=== PATIENT | female | born 1975 | race Caucasian/White ===

== ENCOUNTER 2016-08-22 18:14 | Observation (INO) | payer OTHER ==
[~2016-08-22] VITALS: Ht 162.6 cm; Wt 90.3 kg
[~2016-08-22 18:14] MED LIST: ADVIL,NUPRIN,M200 MG PO; AMBIEN10 MG PO; AMITRIPTYLINE H10 MG PO; ANTIVERT25 MG PO; ASPIRIN EC325 MG PO; ATIVAN1 MG PO; AVENTYL,PAMELOR50 MG; Ambien PO; BACTRIM,SEPT1 TABLET PO; BENADRYL50 MG PO; BENTYL10 MG PO; CARAFATE100 MG/ML PO; CELEXA20 MG PO; CLARITIN-D 21 TABLET PO; CLONAZEPAM0.5 MG; CLONAZEPAM0.5 MG PO; COUMADIN,JANTO7.5 MG PO; Carafate PO; DIAZEPAM5 MG PO; DILAUDID2 MG PO; Dilaudid PO; ELAVIL50 MG PO; EXCEDRIN EXTRA1 EACH PO; FIORICET WI1 CAPSULE PO; FIORICET,ESG1 TABLET PO; FLAGYL500 MG PO; FLONASE16 G1 BOTH NARES; GABAPENTIN300 MG PO; IMITREX50 MG PO; INDERAL LA60 MG PO; INDERAL LA80 MG PO; INDERAL60 MG PO; INNOPRAN XL80 MG PO; KLONOPIN0.5 M1 PO; LEVOTHYROXINE50 MCG PO; MACROBID100 MG PO; NAPROXEN500 MG PO; NOHOMEMEDS; NORCO 5/3251 TABLET PO; NORTRIPTYLINE H10 MG; NORTRIPTYLINE H10 MG PO; NORTRIPTYLINE H50 MG PO; OMEPRAZOLE20 M2 PO; ONDANSETRON ODT4 MG PO; PANTOPRAZOLE SO40 MG PO; PERCOCET 5/31 TABLET PO; PHENERGAN25 MG PR; PROMETHAZINE HC25 M1; PROMETHAZINE HC25 M1 PO; PROPRANOLOL HCL60 MG PO; PROTONIX40 MG PO; Phenergan PO; Protonix PO; RESTORIL30 MG PO; ROBAXIN500 MG PO; SYNTHROID100 MCG PO; TEMAZEPAM30 MG PO; TOPAMAX25 MG PO; TOPAMAX50 MG PO; TRAMADOL HCL50 MG PO; TRANSDERM-SCO1 PATCH TD; TRAZODONE HCL100 MG PO; TRIAZOLAM0.25 MG PO; Ultram PO; VALIUM5 MG PO; VICODIN,LORT1 TABLET PO; XARELTO20 MG PO; ZANTAC150 MG PO; ZOFRAN ODT4 MG PO; ZOFRAN ODT8 MG PO; ZOFRAN4 MG PO; ZOMIG2.5 M1 NS
[2016-08-22 19:14] LABS: EOSINOPHIL (%) 2.8 % (0-5); EOSINOPHIL COUNT 0.3 K/uL (0-0.3); HEMATOCRIT 42.1 % (36.0-46.0); IMMATURE GRANULOCYTE (%) 0.2 % (0.0-0.7); IMMATURE GRANULOCYTE COUNT 0.2 K/uL; LYMPHOCYTE COUNT 2.5 K/uL (1.0-2.8); MCH 29.3 PG (29.0-34.0); MCV 86.3 FL (83-99); MEAN PLAT.VOLUME 9.9 uM^3 (9.5-12.4); MONOCYTE (%) 7.8 % (3-12); MONOCYTE COUNT 0.8 K/uL (0-0.8); NEUTROPHIL (%) 63.7 % (45-76); NEUTROPHIL COUNT 6.4 K/uL (1.8-6.4); PLATELET COUNT 269 K/uL (156-360); RBC DIS.WIDTH-SD 40.2 % (39-53); RED BLOOD COUNT 4.88 M/uL (3.80-5.20)
[2016-08-22 19:22] LABS: CHLORIDE 108 mEq/L (99-109); POTASSIUM 3.7 mEq/L (3.7-5.4); SODIUM 142 mEq/L (136-147)
[2016-08-22 19:25] LABS: GLUCOSE 89 mg/dL (70-99)
[2016-08-22 19:26] LABS: D-DIMER ELISA 0.29 mg/L FEU (< 0.57)
[2016-08-22 19:26] LABS: ANION GAP 11 MEQ/L (2-14); TOTAL BILIRUBIN 0.3 mg/dL (0.0-1.0)
[2016-08-22 19:28] LABS: ALKALINE PHOSPHATASE 101 IU/L (3-129); GFR ESTIMATE (CALCULATED) > 59 mL/min/
[2016-08-22 19:29] LABS: UREA NITROGEN (BUN) 17 mg/dL (9-23)
[2016-08-22 19:34] LABS: TROP-I INTERPRETATION NEGATIVE; TROPONIN-I < 0.01 ng/mL (0.0-0.30)
[2016-08-22] MEDS ORDERED: ZOFRAN ODT4 MG PO (20:23)
[2016-08-23] VITALS: BP 108/63
[2016-08-23 00:50] VITALS: BP 130/76
[2016-08-23 07:37] VITALS: BP 81/50
[2016-08-23 08:24] LABS: TROP-I INTERPRETATION NEGATIVE; TROPONIN-I < 0.01 ng/mL (0.0-0.30)
[2016-08-23 11:49] LABS: TROP-I INTERPRETATION NEGATIVE; TROPONIN-I < 0.01 ng/mL (0.0-0.30)
[2016-08-23 12:23] VITALS: BP 95/63
== END 2016-08-23 13:18 | disposition home or self-care (01) ==
LOC: EME 18:14 → 5WEST 20:13 → EDOF 20:13 → UNDODEPER 21:46 → 5WEST 21:46
PROVIDERS: Emergency Medicine; Hospitalist; Physician Assistant Medical
DX: R07.89 Other chest pain (principal); G43.909 Migraine, unspecified, not intractable, without status migrainosus; E66.9 Obesity, unspecified; Z86.718 Personal history of other venous thrombosis and embolism; Z86.711 Personal history of pulmonary embolism
CPT/HCPCS: 71020; 71275; 80053; 83880; 84484; 85025; 85379; 93005; 99281; 99284; G0378; J1885; J7030

== ENCOUNTER 2016-11-16 16:13 | Observation (INO) | payer OTHER ==
[~2016-11-16] VITALS: Ht 154.9 cm; Wt 90.0 kg
[2016-11-16 17:10] LABS: HEMATOCRIT 43.3 % (36.0-46.0); MCH 27.2 PG (29.0-34.0); MCHC 31.4 G/DL (30.0-36.0); MCV 86.6 FL (83-99); MEAN PLAT.VOLUME 10.7 uM^3 (9.5-12.4); PLATELET COUNT 189 K/uL (156-360)
[2016-11-16] MEDS ORDERED: ELIQUIS2.5 MG PO (17:27)
[2016-11-16] MEDS ORDERED: PROTONIX40 MG PO (17:28)
[2016-11-16 17:37] LABS: CHLORIDE 109 mEq/L (99-109); POTASSIUM 3.5 mEq/L (3.7-5.4); SODIUM 143 mEq/L (136-147)
[2016-11-16 17:39] LABS: GLUCOSE 92 mg/dL (70-99)
[2016-11-16 17:40] LABS: ANION GAP 11 MEQ/L (2-14)
[2016-11-16 17:41] LABS: TOTAL BILIRUBIN 0.4 mg/dL (0.0-1.0)
[2016-11-16 17:42] LABS: ALKALINE PHOSPHATASE 103 IU/L (3-129)
[2016-11-16 17:43] LABS: GFR ESTIMATE (CALCULATED) > 59 mL/min/
[2016-11-16 17:44] LABS: UREA NITROGEN (BUN) 14 mg/dL (9-23)
[2016-11-16 17:46] LABS: LIPASE 19 U/L (1.0-51.0)
[2016-11-16 17:47] LABS: ADD MIUA? YES; BILIRUBIN NEGATIVE; BLOOD NEGATIVE; COLOR YELLOW ((YELLOW)); GLUCOSE (STRIP) NEGATIVE; KETONES NEGATIVE; LEUKOCYTES NEGATIVE; NITRITE NEGATIVE; PROTEIN (STRIP) NEGATIVE; SPECIFIC GRAVITY 1.016 (1.000-1.030); UROBILINOGEN 0.2 MG/DL (0.2-1.0)
[2016-11-16 17:51] LABS: QUANTITATIVE HCG < 4.0 MIU/ML
[2016-11-16 17:52] LABS: BACTERIA RARE /HPF; EPITHELIAL CELLS 1+ /HPF; MUCUS TRACE /LPF; RED BLOOD CELLS NONE SEEN /HPF (0-5); UCUL ADDED? NO; WHITE BLOOD CELLS 0-5 /HPF (0-5)
[2016-11-17] MEDS ORDERED: SYNTHROID150 MCG PO (01:20)
[2016-11-17] MEDS ORDERED: ZOMIG5 M1 NS (01:21)
[2016-11-17 03:58] VITALS: BP 100/63
[2016-11-17 05:56] LABS: HEMATOCRIT 35.5 % (36.0-46.0); MCH 28.2 PG (29.0-34.0); MCHC 32.4 G/DL (30.0-36.0); MEAN PLAT.VOLUME 10.2 uM^3 (9.5-12.4); PLATELET COUNT 216 K/uL (156-360); RBC DIS.WIDTH-CV 12.9 % (11.8-14.6); RBC DIS.WIDTH-SD 40.9 % (39-53); RED BLOOD COUNT 4.08 M/uL (3.80-5.20); WHITE BLOOD COUNT 6.5 K/uL (4.1-10.2)
[2016-11-17 06:21] LABS: ALKALINE PHOSPHATASE 80 IU/L (3-129); ANION GAP 8 MEQ/L (2-14); CHLORIDE 112 MEQ/L (99-109); GFR ESTIMATE (CALCULATED) > 59 mL/min/; GLUCOSE 89 mg/dL (70-99); POTASSIUM 3.6 MEQ/L (3.7-5.4); SAMPLE HEMOLYSIS CHECK 0; SAMPLE ICTERIC CHECK 0; SAMPLE LIPEMIA CHECK 0; SODIUM 142 MEQ/L (136-147); TOTAL BILIRUBIN 0.5 MG/DL (0.0-1.0); UREA NITROGEN (BUN) 10 mg/dL (9-23)
[2016-11-17 07:32] VITALS: BP 113/55
[2016-11-17 12:04] VITALS: BP 97/58
[2016-11-17 15:45] VITALS: BP 112/82
[2016-11-17 19:16] VITALS: BP 117/73
[2016-11-18 04:06] VITALS: BP 124/74
[2016-11-18 06:16] LABS: EOSINOPHIL COUNT 0.2 K/uL (0-0.3); HEMATOCRIT 36.5 % (36.0-46.0); INSTRUMENT ABS NEUTROPHIL CT 1.6 K/uL; LYMPHOCYTE COUNT 2.2 K/uL (1.0-2.8); MCH 28.7 PG (29.0-34.0); MCHC 32.6 G/DL (30.0-36.0); MEAN PLAT.VOLUME 10.5 uM^3 (9.5-12.4); MONOCYTE COUNT 0.4 K/uL (0-0.8); NEUTROPHIL (%) 36.2 % (45-76); NEUTROPHIL COUNT 1.6 K/uL (1.8-6.4); PLATELET COUNT 199 K/uL (156-360); RBC DIS.WIDTH-CV 12.9 % (11.8-14.6); RBC DIS.WIDTH-SD 41.6 % (39-53); RED BLOOD COUNT 4.15 M/uL (3.80-5.20)
[2016-11-18 06:17] LABS: WHITE BLOOD COUNT 4.4 K/uL (4.1-10.2)
[2016-11-18 06:44] LABS: ANION GAP 10 MEQ/L (2-14); CHLORIDE 109 MEQ/L (99-109); GFR ESTIMATE (CALCULATED) > 59 mL/min/; GLUCOSE 82 mg/dL (70-99); POTASSIUM 3.6 MEQ/L (3.7-5.4); SAMPLE HEMOLYSIS CHECK 0; SAMPLE ICTERIC CHECK 0; SAMPLE LIPEMIA CHECK 0; SODIUM 143 MEQ/L (136-147); UREA NITROGEN (BUN) 9 mg/dL (9-23)
[2016-11-18 07:20] VITALS: BP 97/63
[2016-11-18 09:53] LABS: MAGNESIUM 2.1 mg/dl (1.3-2.7)
[2016-11-18 12:15] VITALS: BP 121/90
[2016-11-18 12:48] VITALS: BP 121/90
[2016-11-18] MEDS ORDERED: ENDOCET 5-3251 EACH PO (14:31)
== END 2016-11-18 15:10 | disposition home or self-care (01) ==
LOC: EME 16:13 → EDOF 11-17 02:05 → 5WEST 11-17 03:52
PROVIDERS: Hospitalist; Internal Medicine
DX: R11.2 Nausea with vomiting, unspecified (principal); K92.0 Hematemesis; D68.2 Hereditary deficiency of other clotting factors; G89.29 Other chronic pain; R10.9 Unspecified abdominal pain; E03.9 Hypothyroidism, unspecified; G43.909 Migraine, unspecified, not intractable, without status migrainosus; E66.01 Morbid (severe) obesity due to excess calories; Z68.37 Body mass index [BMI] 37.0-37.9, adult; Z79.01 Long term (current) use of anticoagulants; Z86.711 Personal history of pulmonary embolism; Z86.718 Personal history of other venous thrombosis and embolism
CPT/HCPCS: 74020; 78264; 80048; 80053; 81003; 83690; 83735; 84702; 85025; 85027; 85730; 99281; 99285; A9541; C9113; G0378; J1170; J2405; J3010; J7030; Q0169

== ENCOUNTER 2017-01-20 15:39 | Emergency (ER) | payer OTHER ==
[~2017-01-20] VITALS: Ht 154.9 cm; Wt 86.1 kg
[~2017-01-20 15:39] MED LIST changes: +ELIQUIS2.5 MG PO; +ENDOCET 5-3251 EACH PO; +SYNTHROID150 MCG PO; +ZOMIG5 M1 NS
[2017-01-20 16:59] LABS: EOSINOPHIL (%) 2.7 % (0-5); EOSINOPHIL COUNT 0.2 K/uL (0-0.3); HEMATOCRIT 41.7 % (36.0-46.0); IMMATURE GRANULOCYTE (%) 0.2 % (0.0-0.7); INSTRUMENT ABS NEUTROPHIL CT 5.8 K/uL; MCH 27.2 PG (29.0-34.0); MCHC 32.9 G/DL (30.0-36.0); MCV 82.7 FL (83-99); MEAN PLAT.VOLUME 9.9 uM^3 (9.5-12.4); MONOCYTE (%) 7.7 % (3-12); MONOCYTE COUNT 0.7 K/uL (0-0.8); NEUTROPHIL (%) 66.4 % (45-76); NEUTROPHIL COUNT 5.8 K/uL (1.8-6.4); PLATELET COUNT 272 K/uL (156-360); RBC DIS.WIDTH-CV 13.2 % (11.8-14.6); RBC DIS.WIDTH-SD 39.7 % (39-53); RED BLOOD COUNT 5.04 M/uL (3.80-5.20); WHITE BLOOD COUNT 8.8 K/uL (4.1-10.2)
[2017-01-20 17:13] LABS: CHLORIDE 107 mEq/L (99-109); POTASSIUM 3.7 mEq/L (3.7-5.4); SODIUM 140 mEq/L (136-147)
[2017-01-20 17:15] LABS: GLUCOSE 91 mg/dL (70-99)
[2017-01-20 17:17] LABS: ANION GAP 12 MEQ/L (2-14); TOTAL BILIRUBIN 0.3 mg/dL (0.0-1.0)
[2017-01-20 17:19] LABS: ALKALINE PHOSPHATASE 118 IU/L (3-129); GFR ESTIMATE (CALCULATED) > 59 mL/min/
[2017-01-20 17:20] LABS: UREA NITROGEN (BUN) 12 mg/dL (9-23)
[2017-01-20 17:22] LABS: LIPASE 21 U/L (1.0-51.0)
[2017-01-20 17:28] LABS: QUANTITATIVE HCG < 4.0 MIU/ML
[2017-01-20] MEDS ORDERED: BENTYL20 MG PO (18:36)
[2017-01-20] MEDS ORDERED: MACROBID100 MG PO (18:39)
[2017-01-20 18:50] VITALS: BP 111/87
== END 2017-01-20 19:00 | disposition home or self-care (01) ==
LOC: EME 15:39 → EXP 15:39
PROVIDERS: Physician Assistant
DX: K92.1 Melena (principal); K21.9 Gastro-esophageal reflux disease without esophagitis; E03.9 Hypothyroidism, unspecified; Z90.49 Acquired absence of other specified parts of digestive tract; Z90.710 Acquired absence of both cervix and uterus; Z87.442 Personal history of urinary calculi; Z86.718 Personal history of other venous thrombosis and embolism; Z86.711 Personal history of pulmonary embolism; Z79.01 Long term (current) use of anticoagulants; Z86.61 Personal history of infections of the central nervous system; Z88.0 Allergy status to penicillin
CPT/HCPCS: 74176; 80053; 83690; 84702; 85025; 86900; 86901; 99281; 99284; J2405; J3010; J7030

== ENCOUNTER 2017-01-25 14:52 | Observation (INO) | payer OTHER ==
[~2017-01-25] VITALS: Ht 154.9 cm; Wt 86.5 kg
[~2017-01-25 14:52] MED LIST changes: +BENTYL20 MG PO
[2017-01-25 15:47] LABS: HEMATOCRIT 43.9 % (36.0-46.0); MCH 27.2 PG (29.0-34.0); MCV 82.2 FL (83-99); MEAN PLAT.VOLUME 10.3 uM^3 (9.5-12.4); PLATELET COUNT 274 K/uL (156-360); RBC DIS.WIDTH-CV 13.2 % (11.8-14.6); RBC DIS.WIDTH-SD 39.2 % (39-53); RED BLOOD COUNT 5.34 M/uL (3.80-5.20); WHITE BLOOD COUNT 7.8 K/uL (4.1-10.2)
[2017-01-25 16:01] LABS: CHLORIDE 108 mEq/L (99-109); POTASSIUM 4.3 mEq/L (3.7-5.4); SODIUM 138 mEq/L (136-147)
[2017-01-25 16:03] LABS: GLUCOSE 108 mg/dL (70-99)
[2017-01-25 16:04] LABS: ANION GAP 9 MEQ/L (2-14)
[2017-01-25 16:07] LABS: GFR ESTIMATE (CALCULATED) > 59 mL/min/
[2017-01-25 16:08] LABS: UREA NITROGEN (BUN) 17 mg/dL (9-23)
[2017-01-25 16:16] LABS: QUANTITATIVE HCG < 4.0 MIU/ML
[2017-01-25 23:59] VITALS: BP 110/69
[2017-01-26 04:00] VITALS: BP 132/82
[2017-01-26 07:08] LABS: ANION GAP 12 MEQ/L (2-14); CHLORIDE 108 MEQ/L (99-109); GFR ESTIMATE (CALCULATED) > 59 mL/min/; GLUCOSE 94 mg/dL (70-99); POTASSIUM 3.9 MEQ/L (3.7-5.4); SAMPLE HEMOLYSIS CHECK 0; SAMPLE ICTERIC CHECK 0; SAMPLE LIPEMIA CHECK 0; SODIUM 139 MEQ/L (136-147); UREA NITROGEN (BUN) 18 mg/dL (9-23)
[2017-01-26 07:29] LABS: POC NON-PRINT COM 1 ND
[2017-01-26 08:12] LABS: HEMATOCRIT 39.3 % (36.0-46.0); MCH 27.9 PG (29.0-34.0); MCHC 33.3 G/DL (30.0-36.0); MCV 83.6 FL (83-99); MEAN PLAT.VOLUME 10.2 uM^3 (9.5-12.4); PLATELET COUNT 239 K/uL (156-360); RBC DIS.WIDTH-CV 13.4 % (11.8-14.6); WHITE BLOOD COUNT 7.4 K/uL (4.1-10.2)
[2017-01-26 08:52] VITALS: BP 151/64
[2017-01-26 13:00] VITALS: BP 114/62
[2017-01-26] MEDS ORDERED: BENTYL20 MG PO (13:00)
[2017-01-26 14:08] LABS: HEMATOCRIT 42.2 % (36.0-46.0); MCH 26.9 PG (29.0-34.0); MCV 84.2 FL (83-99); MEAN PLAT.VOLUME 10.1 uM^3 (9.5-12.4); PLATELET COUNT 222 K/uL (156-360); RBC DIS.WIDTH-CV 13.4 % (11.8-14.6); RBC DIS.WIDTH-SD 41.2 % (39-53); RED BLOOD COUNT 5.01 M/uL (3.80-5.20); WHITE BLOOD COUNT 6.3 K/uL (4.1-10.2)
== END 2017-01-26 15:25 | disposition home or self-care (01) ==
LOC: EME 14:52 → 5WEST 20:45 → EDOF 20:45 → ENRESERV 20:46 → 5WEST 23:43
PROVIDERS: Hospitalist; Physician Assistant; Specialist
DX: K92.2 Gastrointestinal hemorrhage, unspecified (principal); R10.84 Generalized abdominal pain; G89.29 Other chronic pain; D68.9 Coagulation defect, unspecified; E03.9 Hypothyroidism, unspecified; Z88.8 Allergy status to other drugs, medicaments and biological substances; D68.51 Activated protein C resistance; Z86.718 Personal history of other venous thrombosis and embolism; Z79.01 Long term (current) use of anticoagulants; Z68.36 Body mass index [BMI] 36.0-36.9, adult; E66.9 Obesity, unspecified; Z82.49 Family history of ischemic heart disease and other diseases of the circulatory system; Z95.828 Presence of other vascular implants and grafts; Z80.3 Family history of malignant neoplasm of breast
CPT/HCPCS: 78278; 80048; 82272; 83605; 84702; 85027; 86900; 86901; 99281; 99285; A9512; A9560; G0378; J1170; J2060; J2405; J3010; J7030; S0028

== ENCOUNTER 2017-02-24 03:05 | Emergency (ER) | payer SELFPAY ==
[~2017-02-24] VITALS: Ht 152.4 cm; Wt 85.0 kg
[2017-02-24 03:41] LABS: HEMATOCRIT 43.5 % (36.0-46.0); MCH 27.4 PG (29.0-34.0); MCHC 32.2 G/DL (30.0-36.0); MCV 85.1 FL (83-99); MEAN PLAT.VOLUME 10.6 uM^3 (9.5-12.4); PLATELET COUNT 213 K/uL (156-360); RBC DIS.WIDTH-CV 14.9 % (11.8-14.6); RBC DIS.WIDTH-SD 46.1 % (39-53); RED BLOOD COUNT 5.11 M/uL (3.80-5.20); WHITE BLOOD COUNT 7.9 K/uL (4.1-10.2)
[2017-02-24 03:53] LABS: CHLORIDE 109 mEq/L (99-109); POTASSIUM 3.9 mEq/L (3.7-5.4); SODIUM 141 mEq/L (136-147)
[2017-02-24 03:55] LABS: GLUCOSE 86 mg/dL (70-99)
[2017-02-24 03:57] LABS: ANION GAP 13 MEQ/L (2-14); TOTAL BILIRUBIN 0.6 mg/dL (0.0-1.0)
[2017-02-24 03:59] LABS: ALKALINE PHOSPHATASE 132 IU/L (3-129); GFR ESTIMATE (CALCULATED) > 59 mL/min/
[2017-02-24 04:00] LABS: UREA NITROGEN (BUN) 13 mg/dL (9-23)
[2017-02-24 04:08] LABS: QUANTITATIVE HCG < 4.0 MIU/ML
[2017-02-24 05:03] VITALS: BP 123/72
== END 2017-02-24 05:04 | disposition home or self-care (01) ==
LOC: EME 03:05
DX: K92.2 Gastrointestinal hemorrhage, unspecified (principal); R10.9 Unspecified abdominal pain; Z79.01 Long term (current) use of anticoagulants; K21.9 Gastro-esophageal reflux disease without esophagitis; E03.9 Hypothyroidism, unspecified; Z87.442 Personal history of urinary calculi; Z86.73 Personal history of transient ischemic attack (TIA), and cerebral infarction without residual deficits; Z86.718 Personal history of other venous thrombosis and embolism; Z88.6 Allergy status to analgesic agent; Z88.5 Allergy status to narcotic agent; Z88.1 Allergy status to other antibiotic agents
CPT/HCPCS: 80053; 81003; 84702; 85027; 99281; 99285; J2405; J3010

== ENCOUNTER 2017-02-24 23:03 | Emergency (ER) | payer SELFPAY ==
[~2017-02-24] VITALS: Ht 154.9 cm; Wt 85.1 kg
[2017-02-25 00:05] LABS: HEMATOCRIT 43.9 % (36.0-46.0); MCH 27.2 PG (29.0-34.0); MCHC 31.9 G/DL (30.0-36.0); MCV 85.4 FL (83-99); MEAN PLAT.VOLUME 10.6 uM^3 (9.5-12.4); PLATELET COUNT 239 K/uL (156-360); RBC DIS.WIDTH-CV 14.8 % (11.8-14.6); RBC DIS.WIDTH-SD 46.5 % (39-53); RED BLOOD COUNT 5.14 M/uL (3.80-5.20)
[2017-02-25 00:17] LABS: CHLORIDE 106 mEq/L (99-109); POTASSIUM 3.9 mEq/L (3.7-5.4); SODIUM 142 mEq/L (136-147)
[2017-02-25 00:19] LABS: GLUCOSE 86 mg/dL (70-99)
[2017-02-25 00:21] LABS: ANION GAP 14 MEQ/L (2-14); TOTAL BILIRUBIN 0.7 mg/dL (0.0-1.0)
[2017-02-25 00:23] LABS: ALKALINE PHOSPHATASE 139 IU/L (3-129); GFR ESTIMATE (CALCULATED) > 59 mL/min/
[2017-02-25 00:24] LABS: UREA NITROGEN (BUN) 13 mg/dL (9-23)
[2017-02-25 00:25] LABS: DIRECT BILIRUBIN 0.3 mg/dL (0.0-0.3)
[2017-02-25 00:26] LABS: LIPASE 15 U/L (1.0-51.0)
[2017-02-25 04:05] VITALS: BP 102/71
== END 2017-02-25 04:11 | disposition home or self-care (01) ==
LOC: EME 23:03
PROVIDERS: Emergency Medicine
DX: K92.2 Gastrointestinal hemorrhage, unspecified (principal); R10.84 Generalized abdominal pain; Z87.442 Personal history of urinary calculi; Z86.73 Personal history of transient ischemic attack (TIA), and cerebral infarction without residual deficits; E03.9 Hypothyroidism, unspecified; K21.9 Gastro-esophageal reflux disease without esophagitis
CPT/HCPCS: 74177; 80048; 80076; 83690; 85027; 86850; 86900; 86901; 99281; 99285; J2405; J3010; J7030

== ENCOUNTER 2017-02-25 22:53 | Observation (INO) | payer SELFPAY ==
[~2017-02-25] VITALS: Ht 154.9 cm; Wt 88.9 kg
[2017-02-26 00:48] LABS: HEMATOCRIT 40.4 % (36.0-46.0); MCH 27.6 PG (29.0-34.0); MCHC 31.9 G/DL (30.0-36.0); MCV 86.5 FL (83-99); MEAN PLAT.VOLUME 10.6 uM^3 (9.5-12.4); PLATELET COUNT 194 K/uL (156-360); RBC DIS.WIDTH-CV 14.6 % (11.8-14.6); RBC DIS.WIDTH-SD 46.6 % (39-53); RED BLOOD COUNT 4.67 M/uL (3.80-5.20); WHITE BLOOD COUNT 7.9 K/uL (4.1-10.2)
[2017-02-26 01:01] LABS: CHLORIDE 114 mEq/L (99-109); POTASSIUM 3.5 mEq/L (3.7-5.4); SODIUM 144 mEq/L (136-147)
[2017-02-26 01:03] LABS: GLUCOSE 93 mg/dL (70-99)
[2017-02-26 01:05] LABS: ANION GAP 9 MEQ/L (2-14)
[2017-02-26 01:07] LABS: ALKALINE PHOSPHATASE 107 IU/L (3-129); GFR ESTIMATE (CALCULATED) > 59 mL/min/
[2017-02-26 01:08] LABS: UREA NITROGEN (BUN) 13 mg/dL (9-23)
[2017-02-26 01:17] LABS: QUANTITATIVE HCG < 4.0 MIU/ML; TOTAL BILIRUBIN 0.3 mg/dL (0.0-1.0)
[2017-02-26 04:07] LABS: ADD MIUA? NO; BILIRUBIN NEGATIVE; BLOOD NEGATIVE; COLOR STRAW ((YELLOW)); GLUCOSE (STRIP) NEGATIVE; KETONES NEGATIVE; LEUKOCYTES NEGATIVE; NITRITE NEGATIVE; PROTEIN (STRIP) NEGATIVE; SPECIFIC GRAVITY 1.014 (1.000-1.030); UCUL ADDED? NO; UROBILINOGEN 0.2 MG/DL (0.2-1.0)
[2017-02-26 08:00] VITALS: BP 114/76
[2017-02-26 12:38] VITALS: BP 110/56
[2017-02-26 16:00] VITALS: BP 100/65
[2017-02-26 16:35] LABS: LIPASE 27 U/L (1.0-51.0)
[2017-02-26 19:20] VITALS: BP 121/72
[2017-02-27] VITALS (7 sets, daily range): BP systolic 83–105; BP diastolic 50–68
[2017-02-27 06:03] LABS: ANION GAP 8 MEQ/L (2-14); CHLORIDE 111 MEQ/L (99-109); POTASSIUM 3.9 MEQ/L (3.7-5.4); SAMPLE HEMOLYSIS CHECK 1; SAMPLE ICTERIC CHECK 0; SAMPLE LIPEMIA CHECK 0; SODIUM 140 MEQ/L (136-147)
[2017-02-27 06:09] LABS: GFR ESTIMATE (CALCULATED) > 59 mL/min/; GLUCOSE 107 mg/dL (70-99); UREA NITROGEN (BUN) 9 mg/dL (9-23)
[2017-02-27 11:25] LABS: INTERNAL CONTROL VALID? YES
[2017-02-27 12:10] LABS: C DIFF TOXIN NEGATIVE (NEGATIVE)
[2017-02-27 12:14] LABS: PROBE CHECK PASS; SPECIMEN PROCESSING CONTROL PASS
[2017-02-28] VITALS: BP 108/69
[2017-02-28 03:35] VITALS: BP 117/63
[2017-02-28 08:22] VITALS: BP 102/59
[2017-02-28 10:21] VITALS: BP 88/50
== END 2017-02-28 21:03 | disposition home or self-care (01) ==
LOC: EME 22:53 → EDOF 02-26 05:25 → 5WEST 02-26 05:25 → EDOF 02-26 05:25 → ENRESERV 02-26 05:31 → 5WEST 02-26 07:54
PROVIDERS: Emergency Medicine; Internal Medicine; Nurse Practitioner Family
PROC: 0DB68ZX Excision of Stomach, Via Natural or Artificial Opening Endoscopic, Diagnostic (ICD-10-PCS; principal; 2017-02-26)
PROC: 0DJD8ZZ Inspection of Lower Intestinal Tract, Via Natural or Artificial Opening Endoscopic (ICD-10-PCS; principal; 2017-02-26)
DX: R10.13 Epigastric pain (principal); R10.12 Left upper quadrant pain; R11.2 Nausea with vomiting, unspecified; K29.70 Gastritis, unspecified, without bleeding; K92.2 Gastrointestinal hemorrhage, unspecified; K64.8 Other hemorrhoids; Z90.49 Acquired absence of other specified parts of digestive tract; D68.51 Activated protein C resistance; Z86.718 Personal history of other venous thrombosis and embolism; Z86.711 Personal history of pulmonary embolism; Z79.01 Long term (current) use of anticoagulants; Z98.890 Other specified postprocedural states; E03.9 Hypothyroidism, unspecified; G89.4 Chronic pain syndrome; Z87.442 Personal history of urinary calculi; Z90.710 Acquired absence of both cervix and uterus; Z88.0 Allergy status to penicillin; Z88.5 Allergy status to narcotic agent; Z88.1 Allergy status to other antibiotic agents; Z80.3 Family history of malignant neoplasm of breast; Z80.1 Family history of malignant neoplasm of trachea, bronchus and lung; Z82.49 Family history of ischemic heart disease and other diseases of the circulatory system
CPT/HCPCS: 74177; 80048; 80053; 81003; 82272; 83690; 84702; 85027; 87493; 88305; 88342 TC; 99281; 99284; G0378; J1170; J2405; J3010; J7030

== ENCOUNTER 2017-10-16 20:26 | Emergency (ER) | payer SELFPAY ==
[~2017-10-16] VITALS: Ht 154.9 cm; Wt 87.7 kg
[2017-10-16 22:20] LABS: HEMATOCRIT 44.7 % (36.0-46.0); HEMOGLOBIN 14.9 G/DL (11.9-15.5); MCH 29.2 PG (29.0-34.0); MCHC 33.3 G/DL (30.0-36.0); MCV 87.5 FL (83-99); PLATELET COUNT 233 K/uL (156-360); RBC DIS.WIDTH-CV 13.8 % (11.8-14.6); RBC DIS.WIDTH-SD 44.7 % (39-53); RED BLOOD COUNT 5.11 M/uL (3.80-5.20); WHITE BLOOD COUNT 10.6 K/uL (4.1-10.2)
[2017-10-16 22:23] LABS: APPEARANCE CLEAR ((CLEAR)); BILIRUBIN NEGATIVE; BLOOD SMALL; COLOR STRAW ((YELLOW)); GLUCOSE (STRIP) NEGATIVE; KETONES NEGATIVE; LEUKOCYTES NEGATIVE; NITRITE NEGATIVE; PROTEIN (STRIP) NEGATIVE; UROBILINOGEN 0.2 MG/DL (0.2-1.0)
[2017-10-16 22:28] LABS: BACTERIA RARE /HPF; EPITHELIAL CELLS RARE /HPF; MUCUS TRACE /LPF; RED BLOOD CELLS 0-5 /HPF (0-5); UCUL ADDED? NO; WHITE BLOOD CELLS 0-5 /HPF (0-5)
[2017-10-16 22:39] LABS: ALBUMIN 4.5 G/DL (3.2-4.8); CHLORIDE 106 MEQ/L (99-109); POTASSIUM 3.6 MEQ/L (3.7-5.4); SODIUM 138 MEQ/L (136-147); TOTAL BILIRUBIN 0.3 MG/DL (0.0-1.0)
[2017-10-16 22:45] LABS: ALKALINE PHOSPHATASE 101 IU/L (3-129); ALT (GPT) 21 IU/L (3-49); AST (GOT) 19 IU/L (2-34); CREATININE 0.9 MG/DL (0.6-1.3); GFR ESTIMATE (CALCULATED) > 59 mL/min/; GLUCOSE 121 mg/dL (70-99); TOTAL PROTEIN 7.4 G/DL (6.4-8.3); UREA NITROGEN (BUN) 13 mg/dL (9-23)
[2017-10-16 22:48] LABS: QUANTITATIVE HCG < 4.0 MIU/ML
[2017-10-16 22:49] LABS: AMYLASE 77 IU/L (1-118)
[2017-10-16 22:54] LABS: LIPASE 17 U/L (1.0-51.0)
[2017-10-17 01:21] LABS: D-DIMER ELISA < 150.00 ng/mLDDU (<230)
[2017-10-17] MEDS ORDERED: PERCOCET 5/31 TABLET PO (01:31)
[2017-10-17 01:55] VITALS: BP 106/66
== END 2017-10-17 01:55 | disposition home or self-care (01) ==
LOC: EME 20:26
PROVIDERS: Physician Assistant
DX: K92.1 Melena (principal); R10.12 Left upper quadrant pain; Z86.73 Personal history of transient ischemic attack (TIA), and cerebral infarction without residual deficits; E03.9 Hypothyroidism, unspecified; K21.9 Gastro-esophageal reflux disease without esophagitis; Z87.442 Personal history of urinary calculi; Z86.711 Personal history of pulmonary embolism; Z86.718 Personal history of other venous thrombosis and embolism; Z88.0 Allergy status to penicillin; Z88.5 Allergy status to narcotic agent; Z90.49 Acquired absence of other specified parts of digestive tract; Z90.710 Acquired absence of both cervix and uterus
CPT/HCPCS: 74176; 80053; 81003; 82150; 83690; 84702; 85027; 85379; 99281; 99285; J3010

== ENCOUNTER 2018-01-16 09:22 | Emergency (ER) | payer SELFPAY ==
[~2018-01-16] VITALS: Ht 154.9 cm; Wt 86.8 kg
[2018-01-16 10:26] LABS: HEMATOCRIT 40.3 % (36.0-46.0); HEMOGLOBIN 13.7 G/DL (11.9-15.5); MCH 29.7 PG (29.0-34.0); MCV 87.2 FL (83-99); PLATELET COUNT 236 K/uL (156-360); RBC DIS.WIDTH-CV 14.1 % (11.8-14.6); RBC DIS.WIDTH-SD 44.7 % (39-53); RED BLOOD COUNT 4.62 M/uL (3.80-5.20); WHITE BLOOD COUNT 7.4 K/uL (4.1-10.2)
[2018-01-16 10:34] LABS: ALBUMIN 4.4 g/dL (3.2-4.8); CHLORIDE 108 mEq/L (99-109); SODIUM 140 mEq/L (136-147)
[2018-01-16 10:37] LABS: GLUCOSE 113 mg/dL (70-99); TOTAL PROTEIN 7.5 g/dL (6.4-8.3)
[2018-01-16 10:39] LABS: TOTAL BILIRUBIN 0.4 mg/dL (0.0-1.0)
[2018-01-16 10:40] LABS: ALKALINE PHOSPHATASE 92 IU/L (3-129); CREATININE 0.9 mg/dL (0.6-1.3); GFR ESTIMATE (CALCULATED) > 59 mL/min/
[2018-01-16 10:41] LABS: UREA NITROGEN (BUN) 20 mg/dL (9-23)
[2018-01-16 10:42] LABS: AST (GOT) 21 IU/L (2-34)
[2018-01-16 10:43] LABS: ALT (GPT) 25 IU/L (3-49)
[2018-01-16 11:35] LABS: APPEARANCE CLEAR ((CLEAR)); BILIRUBIN NEGATIVE; BLOOD NEGATIVE; COLOR STRAW ((YELLOW)); GLUCOSE (STRIP) NEGATIVE; KETONES NEGATIVE; LEUKOCYTES NEGATIVE; NITRITE NEGATIVE; PROTEIN (STRIP) NEGATIVE; SPECIFIC GRAVITY 1.012 (1.000-1.030); UCUL ADDED? NO; UROBILINOGEN 0.2 MG/DL (0.2-1.0)
[2018-01-16] MEDS ORDERED: PROTONIX40 MG PO (14:35)
[2018-01-16] MEDS ORDERED: PERCOCET 5/31 TABLET PO (14:35)
[2018-01-16 14:54] VITALS: BP 122/90
== END 2018-01-16 15:00 | disposition home or self-care (01) ==
LOC: EME 09:22
PROVIDERS: Emergency Medicine
DX: K62.5 Hemorrhage of anus and rectum (principal); R10.9 Unspecified abdominal pain; Z86.718 Personal history of other venous thrombosis and embolism; Z79.01 Long term (current) use of anticoagulants; Z90.49 Acquired absence of other specified parts of digestive tract; Z90.710 Acquired absence of both cervix and uterus; K21.9 Gastro-esophageal reflux disease without esophagitis; Z86.73 Personal history of transient ischemic attack (TIA), and cerebral infarction without residual deficits; Z87.442 Personal history of urinary calculi; Z88.5 Allergy status to narcotic agent; Z88.1 Allergy status to other antibiotic agents; Z88.0 Allergy status to penicillin
CPT/HCPCS: 74176; 80053; 81003; 85027; 99281; 99285